=== PATIENT | male | born 1955 ===

== ENCOUNTER → 2021-02-20 | Outpatient (CLI) | payer BC ==
--- NOTE | 2021-02-20 09:04 | RAD ---
EXAM: Renal sonogram. HISTORY: Renal lesion on CT. TECHNIQUE: Sonographic imaging of the right kidney and bladder was performed. The left kidney was not assessed. COMPARISON: CT dated 02/15/2021. FINDINGS: The right kidney measures 12.9 cm [id number]. There is a complex right ovarian cyst with thin internal septation or 2 adjacent cysts within the medial mid zone of the right kidney measuring 6.7 cm in maximum dimension. There is a smaller cyst with suspected internal debris within the latera l mid zone of the right kidney measuring 4.4 cm in maximum dimension. Single solid lesion is seen. Th ere is no hydronephrosis. The bladder is unremarkable. The right ureteral jet is less prominent than the left ureteral jet. The prostate is enlarged, measuring 89 cc in volume and 5.0 cm in maximum dime nsion. IMPRESSION: 1. 4.4 cm complicated cyst within the lateral mid zone of the right kidney, likely containing interna l debris. There is no convincing solid lesion component. There is also a complicated cyst with thin i nternal septation or 2 adjacent cysts within the medial mid zone of the right kidney measuring 6.7 cm . Sonographic follow-up can be performed in 6 months to confirm benignity. 2. Prostatomegaly. Electronically signed by: Claudette Lopez MD (02/20/2021 9:02 AM) [id number]
== END ==
LOC: US 07:48
PROVIDERS: ATTEND Internal Medicine Gastroenterology
DX: N28.1 Cyst of kidney, acquired (principal); N28.9 Disorder of kidney and ureter, unspecified; N40.0 Benign prostatic hyperplasia without lower urinary tract symptoms
CPT/HCPCS: 76775